=== PATIENT | male | born 1975 | race Caucasian/White ===

== ENCOUNTER → 2020-12-17 | Outpatient (CLI) | payer OTHER ==
--- NOTE | 2020-12-17 11:27 | REP ---
INDICATION: Z65.5 EXPOSURE TO DISASTER,WAR,OTH HOSTILITIES COMPARISON: None TECHNIQUE: Axial noncontrast images from the thoracic inlet to the upper abdomen with coronal and sagittal reformations. This CT examination was performed using the following dose reduction techniques: Automated exposure control, adjustment of mA and/or kv according to the patient's size, and use of iterative reconstruction technique. FINDINGS: Bilateral lung joaquin are well aerated and clear. No consolidation, suspicious nodule or mass. No effusion. No pneumothorax. Tracheobronchial tree is patent and without bronchiectasis. No obvious adenopathy. Mediastinum demonstrates normal thoracic aorta, pulmonary vasculature and heart/pericardium. Limited upper abdomen demonstrates normal bilateral adrenal glands. Surrounding osseous structures appear intact and without acute process. IMPRESSION: Normal noncontrast chest CT. No acute mediastinal or pleuroparenchymal process appreciated. <Electronically signed by Arcadio Oneill > 12/17/20 [id number]
== END ==
LOC: M RAD 09:52
PROVIDERS: ATTEND Nurse Practitioner Family
DX: J45.30 Mild persistent asthma, uncomplicated (principal); Z65.5 Exposure to disaster, war and other hostilities

== ENCOUNTER → 2021-06-03 | Outpatient (REF) ==
--- NOTE | 2021-06-03 14:36 | REP ---
INDICATION: PAIN AND SOB COMPARISON: 10/05/2019 TECHNIQUE: PA and lateral. FINDINGS: The mediastinum and cardiac silhouette are normal. The lung joaquin are clear and without acute consolidation, effusion, or pneumothorax. The skeletal structures are intact and normal. IMPRESSION: No acute cardiopulmonary process. <Electronically signed by Arcadio Oneill > 06/03/21 [id number]
--- NOTE | 2021-06-03 14:37 | REP ---
INDICATION: PAIN AND SOB. COMPARISON: None. TECHNIQUE: Three views of the sinuses FINDINGS: Sinuses are well aerated and clear. No mucosal thickening or fluid levels are identified. Osseous structures are intact and normal. IMPRESSION: Normal sinus radiographs. <Electronically signed by Arcadio Oneill > 06/03/21 [id number]
--- NOTE | 2021-06-03 14:38 | REP ---
INDICATION: PAIN AND SOB COMPARISON: None. TECHNIQUE: Internal rotation, external rotation, and Y view right and left shoulder. FINDINGS: No acute fracture or dislocation of the right or left shoulder noted. The acromioclavicular and glenohumeral joints are intact, symmetric and age-appropriate. No periarticular calcifications or degenerative changes are appreciated. Sub acromial space is normal. Surrounding soft tissues are unremarkable. IMPRESSION: Normal age-appropriate bilateral shoulder radiographs. <Electronically signed by Arcadio Oneill > 06/03/21 [id number]
--- NOTE | 2021-06-03 14:39 | REP ---
INDICATION: PAIN AND SOB COMPARISON: None. TECHNIQUE: AP and frog-lateral views of the right and left hip FINDINGS: Generalized symmetric mild arthritic changes include subtle increased sclerosis to the bilateral acetabulum with mild joint space narrowing. No further overt osteoarthritic or significant degenerative changes are appreciated. No evidence for acute or healed injury. Surrounding soft tissues are normal. IMPRESSION: Bilateral symmetric mild arthritic degenerative changes. <Electronically signed by Arcadio Oneill > 06/03/21 [id number]
--- NOTE | 2021-06-03 14:40 | REP ---
INDICATION: PAIN AND SOB COMPARISON: None. TECHNIQUE: AP, lateral, coned-down views of the lumbar spine. FINDINGS: Alignment and lordosis maintained. No acute fracture/compression injury or subluxation. Moderate to advanced degenerative changes include endplate sclerosis, facet hypertrophy, marginal spurring and disc space narrowing most pronounced at L5-S1 and L4-5. IMPRESSION: Moderate to early advanced degenerative changes primarily involving L5-S1, L4-5. <Electronically signed by Arcadio Oneill > 06/03/21 [id number]
== END ==
LOC: M PLAIMG 13:30
PROVIDERS: ATTEND Internal Medicine
DX: Z00.00 Encounter for general adult medical examination without abnormal findings (principal)